=== PATIENT | female | born 1975 | race Asian ===

== ENCOUNTER → 2016-09-20 13:46 | Outpatient (CLI) | payer OTHER, BC | END | disposition home or self-care (01) | LOC: AMB 13:46 | DX: Z04.1 Encounter for examination and observation following transport accident (principal) ==

== ENCOUNTER 2016-09-20 14:35 | Emergency (ER) | payer OTHER, BC ==
[~2016-09-20] VITALS: Ht 170.2 cm; Wt 120.7 kg
[2016-09-20 15:20] VITALS: BP 136/82; TEMP 98.1
== END 2016-09-20 15:21 | disposition home or self-care (01) ==
LOC: ED 14:35
DX: R07.89 Other chest pain (principal); V43.52XA Car driver injured in collision with other type car in traffic accident, initial encounter
CPT/HCPCS: 99282

== ENCOUNTER 2016-09-25 15:51 | Emergency (ER) | payer OTHER, BC ==
[~2016-09-25] VITALS: Ht 170.2 cm; Wt 120.7 kg
[2016-09-25 17:02] VITALS: BP 127/80; TEMP 98.1
== END 2016-09-25 17:03 | disposition home or self-care (01) ==
LOC: ED 15:51
DX: S16.1XXA Strain of muscle, fascia and tendon at neck level, initial encounter (principal); S29.012A Strain of muscle and tendon of back wall of thorax, initial encounter; M62.830 Muscle spasm of back; V43.53XA Car driver injured in collision with pick-up truck in traffic accident, initial encounter
CPT/HCPCS: 99282

== ENCOUNTER 2016-10-29 16:02 | Outpatient (CLI) | payer BC, OTHER | END 2016-10-29 19:26 | disposition home or self-care (01) | LOC: RAD 16:02 | DX: S39.012A Strain of muscle, fascia and tendon of lower back, initial encounter (principal) ==

== ENCOUNTER 2016-11-01 14:04 | Outpatient (CLI) | payer BC, OTHER | END 2016-11-01 21:07 | disposition home or self-care (01) | LOC: RAD 14:04 | DX: M54.5 Low back pain (principal); S39.012A Strain of muscle, fascia and tendon of lower back, initial encounter ==

== ENCOUNTER 2018-12-25 13:14 | Outpatient (CLI) | payer BC | END 2018-12-25 19:16 | disposition home or self-care (01) | LOC: MRI 13:14 | DX: M54.16 Radiculopathy, lumbar region (principal) ==

== ENCOUNTER 2020-06-28 13:00 | Emergency (ER) | payer BC ==
[~2020-06-28] VITALS: Ht 167.6 cm; Wt 123.4 kg
[2020-06-28 13:17] VITALS: TEMP 98.8
[2020-06-28 15:17] VITALS: BP 116/64
== END 2020-06-28 14:39 | disposition home or self-care (01) ==
LOC: ED 13:00
DX: T63.391A Toxic effect of venom of other spider, accidental (unintentional), initial encounter (principal); R22.32 Localized swelling, mass and lump, left upper limb; Y92.89 Other specified places as the place of occurrence of the external cause
CPT/HCPCS: 96372; 99283; J2930

== ENCOUNTER 2020-08-06 19:57 | Emergency (ER) | payer BC, OTHER ==
[~2020-08-06] VITALS: Ht 167.6 cm; Wt 127.0 kg
[2020-08-06 21:22] LABS: PLATELET COUNT 226 K/uL (152-353)
[2020-08-06 21:36] LABS: POTASSIUM 4.1 mmol/L (3.6-5.2); SODIUM 134 mmol/L (136-145)
[2020-08-06 22:45] VITALS: BP 125/62; TEMP 98.9
== END 2020-08-06 22:55 | disposition home or self-care (01) ==
LOC: ED 19:57
PROVIDERS: Emergency Medicine Emergency Medical Services
DX: U07.1 COVID-19 (principal); J20.8 Acute bronchitis due to other specified organisms; R06.4 Hyperventilation
CPT/HCPCS: 36415; 36600; 80053; 82805; 83605; 83735; 84484; 85027; 85379; 85610; 87040; 87502; 93005; 96360; 96365; 96375; 99284; J0696; J1100; J2270; J2405

== ENCOUNTER 2021-07-31 11:22 | Emergency (ER) | payer BC ==
[~2021-07-31] VITALS: Ht 167.6 cm; Wt 81.6 kg
[2021-07-31 11:30] VITALS: TEMP 98.4
[2021-07-31 11:58] LABS: PLATELET COUNT 177 K/uL (152-353)
[2021-07-31 12:05] LABS: POTASSIUM 3.6 mmol/L (3.6-5.2)
[2021-07-31 12:50] VITALS: BP 128/66
== END 2021-07-31 12:50 | disposition home or self-care (01) ==
LOC: ED 11:22
PROVIDERS: Emergency Medicine
DX: J20.9 Acute bronchitis, unspecified (principal)
CPT/HCPCS: 80048; 85027; 93005; 96372; 99283; J0696; J1100

== ENCOUNTER 2022-04-11 14:52 | Outpatient (CLI) | payer BC | END 2022-04-11 19:00 | disposition home or self-care (01) | LOC: RAD 14:52 | PROVIDERS: ATTEND Physician Assistant | DX: M54.59 Other low back pain (principal) ==

== ENCOUNTER → 2022-06-12 | Outpatient (CLI) | payer BC | LOC: MRI 06-07 13:00 | PROVIDERS: ATTEND Physician Assistant | DX: M54.12 Radiculopathy, cervical region (principal); M47.896 Other spondylosis, lumbar region ==

== ENCOUNTER 2022-09-10 10:08 | Outpatient (CLI) | payer BC | END 2022-09-10 19:03 | disposition home or self-care (01) | LOC: US 10:08 | PROVIDERS: ATTEND Nurse Practitioner Primary Care | DX: R92.8 Other abnormal and inconclusive findings on diagnostic imaging of breast (principal) ==